=== PATIENT | male | born 1950 | race Caucasian/White ===

== ENCOUNTER 2017-02-24 13:05 | Inpatient (IN) | payer MEDICARE ==
[~2017-02-24] VITALS: Ht 185.4 cm; Wt 77.1 kg
[2017-02-24] VITALS (7 sets, daily range): BP systolic 106–131; BP diastolic 55–75
[2017-02-24] MEDS ORDERED: LOVENOX10 M4 SUBQ (13:06)
[2017-02-24] MEDS ORDERED: CULTURELLE1 EAC1 PO (13:06)
[2017-02-24] MEDS ORDERED: ZANTAC150 MG ORAL (13:06)
[2017-02-24] MEDS ORDERED: METFORMIN HCL500 M5 PO (13:06)
[2017-02-24] MEDS ORDERED: PRO-STAT LIQUID30 ML ORAL (13:06)
[2017-02-24] MEDS ORDERED: LANTUS SOL100 UNIT/1 SUBQ (13:21)
[2017-02-24] MEDS ORDERED: MULTIVITAMINS1 EAC2 ORAL (13:21)
[2017-02-24] MEDS ORDERED: VITAMIN C500 M1 ORAL (13:21)
[2017-02-24] MEDS ORDERED: FUROSEMIDE40 MG ORAL (13:21)
--- NOTE | 2017-02-24 13:40 | Emergency Room Report ---
History of Present Illness General Chief Complaint: General Complaint Source: Patient, EMS Present Illness HPI Patient presents by BLS with complaint of possible fall. The patient has a history of cirrhosis as well as a history of significant peripheral edema for it she suffers from chronic wound ulcers. He is currently staying at a rehabilitation facility and was discharges from [facility]. He states that he slipped off the side of the bed earlier last night. Without a significant impact, did not strike his head. He did state that his Lakhani was manipulated. He required assistance to be brought back to bed today. Was sent here for further evaluation. He has a Lakhani which is been in place for approximately 2-1 /2 months secondary to large inguinal hernia and difficulty passing a Lakhani. Patient complains of suprapubic discomfort and does feel like he likely is suffering from a urinary infection. He denies any specific muscle skeletal complaints or significant chest pain, headache. He does use oxygen for support breathing in general and has a large quantity of abdominal ascites which is chronic for this gentleman. Allergies: Coded Allergies: PENICILLINS (Verified Allergy, Unknown, 02/24/17) Patient History Past Medical History: see triage record, other - cirrhosis Past Surgical History: none Social History: Reports: alcohol use - prior history, Denies: smoking Immunizations: UTD Reviewed Nursing Documentation: PMH: Agreed Nursing Documentation-PMH Hx Cardiac Problems: No - liver cirrohsis, Hx Diabetes: Yes - type 2 Hx Seizures: Yes Review of Systems Constitutional: Reports: malaise, weakness Respiratory: Reports: shortness of breath - requiring oxygen Gastrointestinal: Reports: other - nominal distention, see HPI Genitourinary: Reports: frequency, hematuria, pain All Other Systems: negative except mentioned in HPI Physical Exam Vital Signs Date Time Temp Pulse Resp B/P Pulse Ox O2 Delivery O2 Flow Rate FiO2 02/24/17 12:50 97.9 104 18 118/72 94 Nasal Cannula 3.0 Sp02 EP Interpretation: reviewed, normal General Appearance: well appearing, no apparent distress, GCS 15 Head: atraumatic Eyes: bilateral eye PERRL ENT: normal pharynx, no angioedema Neck: supple, thyroid normal Respiratory: no respiratory distress, decreased breath sounds Cardiovascular #1: tachycardia, edema - bilateral legs Gastrointestinal: soft, no guarding, distended, hepatomegaly, overweight Genitourinary: no CVA tenderness, other - Lakhani in place, significant hernia unable to fully see glans penis. Neurologic: alert, oriented x3, responsive Skin: other - patient has mltiple bruises along arms legs in various stages of healing Medical Decision Making Diagnostic Impression: Primary Impression: UTI (urinary tract infection) Additional Impressions: Cirrhosis Ascites Weakness ER Course Patient here with complaint of urinary symptoms as well as weakness and low kinetic fall yesterday. I do not feel it is any likely significant injury in his abdomen or his extremities based on my exam and the patient's history. He does have a clear-cut urinary tract infection and has had a Lakhani in place for probably 10 weeks. The family the patient would benefit from admission to the hospital and urologic consultation as I do not believe we would be able to exchange a Lakhani in the emergency department. Otherwise labs to appear relatively stable. Notified by Dr. Quigley, pt would be admitted to [facility], for treatment and follow up with urology for lakhani care as inpatient. Laboratory Tests Test 02/24/17 13:40 White Blood Count 8.1 K/UL (4.8-10.8) Red Blood Count 4.37 M/UL (4.70-6.10) L Hemoglobin 10.6 G/DL (14.2-18.0) L Hematocrit 34.5 % (42.0-52.0) L Mean Corpuscular Volume 79 FL (80-99) L Mean Corpuscular Hemoglobin 24.3 PG (27.0-31.0) L Mean Corpuscular Hemoglobin Concent 30.7 G/DL (32.0-36.0) L Red Cell Distribution Width 24.4 % (11.6-14.8) H Platelet Count 96 K/UL (150-450) L Mean Platelet Volume 9.5 FL (6.5-10.1) Neutrophils (%) (Auto) % (45.0-75.0) Lymphocytes (%) (Auto) % (20.0-45.0) Monocytes (%) (Auto) % (1.0-10.0) Eosinophils (%) (Auto) % (0.0-3.0) Basophils (%) (Auto) % (0.0-2.0) Neutrophils % (Manual) Pending Lymphocytes % (Manual) Pending Platelet Estimate Pending Platelet Morphology Pending Prothrombin Time 14.1 SEC (9.30-11.50) H Prothromb Time International Ratio 1.4 (0.9-1.1) H Activated Partial Thromboplast Time 31 SEC (23-33) Urine Color Yellow Urine Appearance Turbid Urine pH 5 (4.5-8.0) Urine Specific [place] 1.020 (1.005-1.035) Urine Protein 2+ (NEGATIVE) H Urine Glucose (UA) Negative (NEGATIVE) Urine Ketones Negative (NEGATIVE) Urine Occult Blood 5+ (NEGATIVE) H Urine Nitrite Negative (NEGATIVE) Urine Bilirubin 2+ (NEGATIVE) H Urine Ictotest Positive Urine Urobilinogen 8 MG/DL (0.0-1.0) H Urine Leukocyte Esterase 3+ (NEGATIVE) H Urine RBC 15-20 /HPF (0 - 0) H Urine WBC Tntc /HPF (0 - 0) H Urine Squamous Epithelial Cells Occasional /LPF Urine Bacteria Many /HPF (NONE) H Sodium Level 139 mEQ/L (135-145) Potassium Level 3.0 mEQ/L (3.4-4.9) L Chloride Level 94 mEQ/L (98-107) L Carbon Dioxide Level 29 mEQ/L (20-30) Anion Gap 16 (5-15) H Blood Urea Nitrogen 22 mg/dL (7-23) Creatinine 1.1 mg/dL (0.7-1.2) Estimat Glomerular Filtration Rate > 60 mL/min (>60) Glucose Level 154 mg/dL (74-106) H Calcium Level 8.4 mg/dL (8.6-10.2) L Total Bilirubin 4.0 mg/dL (0.0-1.2) H Direct Bilirubin 2.0 mg/dL (0.1-0.3) H Aspartate Amino Transf (AST/SGOT) 27 U/L (5-40) Alanine Aminotransferase (ALT/SGPT) 24 U/L (3-41) Alkaline Phosphatase 167 U/L (40-129) H Total Protein 6.5 g/dL (6.6-8.7) L Albumin 2.2 g/dL (3.5-5.2) L Globulin 4.3 g/dL Albumin/Globulin Ratio 0.5 (1.0-2.7) L Lipase 38 U/L (< 60) Rhythm Strip Diag. Results Rhythm Strip Time: 14:10 EP Interpretation: yes Rate: 101 Rhythm: NSR, no PVC's, no ectopy Last Vital Signs Date Time Temp Pulse Resp B/P Pulse Ox O2 Delivery O2 Flow Rate FiO2 02/24/17 13:17 97.9 18 118/72 94 Nasal Cannula 3.0 02/24/17 12:50 104 Disposition: ADMITTED INPATIENT Admit Decision Time: 15:08 Condition: Serious Referrals: DANIELA MARTINEZ (PCP) Troy Patel MD Feb 24, 2017 13:40
[2017-02-24] MEDS ORDERED: cefTRIAXone 1 GM in NS 55 ML IVPB ONE (13:45)
[2017-02-24 14:11] LABS: APPEARANCE,URINE TURBID; KETONES,URINE NEGATIVE (NEGATIVE); LEUKOCYTE ESTERASE ,URINE 3+ (NEGATIVE); NITRITE,URINE NEGATIVE (NEGATIVE); PH,URINE 5 (4.5-8.0); PROTEIN,URINE 2+ (NEGATIVE); UROBILINOGEN,URINE 8 MG/DL (0.0-1.0)
[2017-02-24 14:15] LABS: MEAN CORPUSCULAR HEMOGLOBIN 24.3 PG (27.0-31.0); MEAN CORPUSCULAR HGB CONC 30.7 G/DL (32.0-36.0); MEAN CORPUSCULAR VOLUME 79 FL (80-99); MEAN PLATELET VOLUME 9.5 FL (6.5-10.1); PLATELET COUNT 96 K/UL (150-450); RED BLOOD COUNT 4.37 M/UL (4.70-6.10); RED CELL DISTRIBUTION WIDTH 24.4 % (11.6-14.8); WHITE BLOOD COUNT 8.1 K/UL (4.8-10.8)
[2017-02-24 14:23] LABS: BACTERIA,URINE MANY /HPF; ICTOTEST POSITIVE; RBC,URINE 15-20 /HPF (0 - 0); SQUAMOUS EPITHELIAL CELL,UR OCCASIONAL /LPF (NONE/OCC); WBC,URINE TNTC /HPF (0 - 0)
[2017-02-24 14:29] LABS: ALANINE AMINOTRANSFERASE 24 U/L (3-41); ALBUMIN/GLOBULIN RATIO 0.5 (1.0-2.7); ANION GAP 16 (5-15); ASPARTATE AMINO TRANSFERASE 27 U/L (5-40); CALCIUM 8.4 mg/dL (8.6-10.2); CARBON DIOXIDE 29 mEQ/L (20-30); CHLORIDE 94 mEQ/L (98-107); CREATININE 1.1 mg/dL (0.7-1.2); GLOMERULAR FILTRATION RATE > 60 mL/min (>60); HEMOLYSIS 10; INR 1.4 (0.9-1.1); LIPASE 38 U/L (< 60); PROTHROMBIN TIME 14.1 SEC (9.30-11.50); SODIUM 139 mEQ/L (135-145); TOTAL PROTEIN 6.5 g/dL (6.6-8.7)
[2017-02-24 15:20] LABS: BAND NEUTROPHILS % (MANUAL) 0 % (0-8); BASOPHILS % (MANUAL) 1 % (0-2); EOSINOPHILS % (MANUAL) 1 % (0-3); HYPOCHROMASIA 2+; LYMPHOCYTES % (MANUAL) 20 % (20-45); NEUTROPHILS % (MANUAL) 70 % (45-75); PLATELET ESTIMATE DECREASED; PLATELET MORPHOLOGY NORMAL; TOTAL CELLS COUNTED 100
[2017-02-24 15:21] LABS: ANISOCYTOSIS 2+
[2017-02-24] MEDS ORDERED: Ascorbic Acid 500mg tab ORAL SCH (19:45)
--- NOTE | 2017-02-24 20:36 | History and Physical ---
Dayanara Li N.P. 02/24/172035: History of Present Illness General Date patient seen: Feb 24, 2017 Reason for Hospitalization: General Complaint Present Illness HPI 66 y/o male with a PMH of chronic cirrhosis due to alcoholism, BLE edema, DM, and BPH with chronic lakhani who presented from SNF for generalized weakness, AMS , and fall. Patient stated that he has been feeling weak for the last several days and yesterday slid onto the floor from his bed due to weakness. He denies any trauma, pain, LOC or head injury. He was noted to have a UTI in the ED and was given a dose of ceftriaxone. He states that he was told he had a penicillin allergy as a child but does not know his reaction. However, he has had cephalosporin abx in the past and has been able to tolerate it well. He denies dysuria, hematuria, suprapubic pain. He reports that he has had this lakhani for the last 2 months and has not had it changed due to difficulty inserting it from his inguinal hernia. He also states that he was recently at [facility] and had a full workup for his alcoholic cirrhosis for which they prescribed him lasix. He also reports more SOB than usual. Denies cough, chest pain, n/v, f/c, d/c, abdominal pain, dizziness, headaches. Allergies: Coded Allergies: PENICILLINS (Verified Allergy, Unknown, 02/24/17) Medication History Scheduled Amino Acids/Protein Hydrolys (Pro-Stat Liquid), 30 ML ORAL TWICE A DAY, ( Reported) Ascorbic Acid* (Vitamin C*), 500 MG ORAL DAILY, (Reported) Enoxaparin* (Lovenox*), 40 MG SUBQ DAILY, (Reported) Furosemide* (Lasix*), 40 MG ORAL DAILY, (Reported) Insulin Glargine (Lantus), 0 SUBQ BEDTIME, (Reported) Multivitamins* (Multivitamins*), 1 TAB ORAL DAILY, (Reported) Omeprazole (Omeprazole), 20 MG ORAL BID, (Reported) Ranitidine Hcl* (Zantac*), 150 MG ORAL DAILY, (Reported) Tamsulosin HCl (Flomax), 0.4 MG ORAL DAILY, (Reported) Scheduled PRN Hydrocodone Bit/Acetaminophen 10-325* (Collins 10-325*), 1 TAB ORAL Q4H PRN for For Pain, (Reported) Miscellaneous Medications Lactobacillus Rhamnosus Gg (Culturelle), 1 EACH PO, (Reported) Mag Hydrox/Al Hydrox/Simeth (Maalox Maximum Strength Susp), 30 ML PO, (Reported) Metformin HCl (Metformin HCl ER), 500 MG PO, (Reported) Tolterodine Tartrate (Tolterodine Tartrate ER), 4 MG PO, (Reported) Patient History Healthcare decision maker Resuscitation status Advanced Directive on File Review of Systems Constitutional: Reports: weakness Eye: Denies: acuity changes, blurred vision, discharge, double vision, eye pain , no symptoms, nose congestion, nose pain, other, see HPI, tearing ENT: Denies: ear discharge, ear pain, hearing loss, mouth pain, nasal discharge , no symptoms, nose congestion, nose pain, other, see HPI, throat pain, throat swelling Respiratory: Reports: orthopnea, other - denies cough, wheezing, shortness of breath Cardiovascular: Reports: edema, Denies: PND, chest pain, no symptoms, other, palpitations, see HPI, syncope Gastrointestinal: Denies: abdominal pain, constipation, diarrhea, hematemesis, melena, nausea, no symptoms, other, see HPI, vomiting Genitourinary: Reports: incontinence, retention, Denies: discharge, dysuria, frequency, hematuria, no symptoms, other, pain, see HPI, urgency, vag bleed/dc Musculoskeletal: Denies: back pain, gout, joint pain, joint swelling, muscle pain, muscle stiffness, no symptoms, other, see HPI Skin: Reports: other, Denies: change in color, change in hair/nails, dryness, lesions, no symptoms, rash, see HPI Psychiatric: Denies: HI, SI, anxiety, depressed feelings, emotional problems, hallucinations, no symptoms, other, prior hx, see HPI Neurological: Denies: dizziness, focal weakness, headache, no symptoms, numbness, other, paresthesia, see HPI, seizure, syncope, tingling, tremors Endocrine: Denies: excessive sweating, flushing, increased thirst, increased urine, intolerance to temperature, no symptoms, other, see HPI, unexplained weight loss Hematologic/Lymphatic: Denies: anemia, blood clots, diathesis, easy bleeding, easy bruising, no symptoms, other, see HPI, swollen glands Physical Exam General Appearance: alert, mild distress HEENT: normocephalic, atraumatic, PERRL Neck: non-tender, supple Respiratory/Chest: lungs clear, normal breath sounds, no accessory muscle use Cardiovascular/Chest: normal rate, regular rhythm, no JVD Abdomen: normal bowel sounds, non tender, distended Extremities: moderate edema, pitting Skin Exam: normal pigmentation, warm/dry Neurologic: paste mixer II-XII grossly normal, alert, oriented x 3, responsive Last 24 Hour Vital Signs Date Time Temp Pulse Resp B/P Pulse Ox O2 Delivery O2 Flow Rate FiO2 02/24/17 18:56 108 18 131/60 96 Nasal Cannula 3.0 02/24/17 17:10 111 18 111/55 96 Nasal Cannula 3.0 02/24/17 15:04 100 18 106/64 100 Nasal Cannula 3.0 02/24/17 13:17 97.9 18 118/72 94 Nasal Cannula 3.0 02/24/17 12:50 97.9 104 18 118/72 94 Nasal Cannula 3.0 Laboratory Tests Test 02/24/17 13:40 White Blood Count 8.1 K/UL (4.8-10.8) Red Blood Count 4.37 M/UL (4.70-6.10) L Hemoglobin 10.6 G/DL (14.2-18.0) L Hematocrit 34.5 % (42.0-52.0) L Mean Corpuscular Volume 79 FL (80-99) L Mean Corpuscular Hemoglobin 24.3 PG (27.0-31.0) L Mean Corpuscular Hemoglobin Concent 30.7 G/DL (32.0-36.0) L Red Cell Distribution Width 24.4 % (11.6-14.8) H Platelet Count 96 K/UL (150-450) L Mean Platelet Volume 9.5 FL (6.5-10.1) Neutrophils (%) (Auto) % (45.0-75.0) Lymphocytes (%) (Auto) % (20.0-45.0) Monocytes (%) (Auto) % (1.0-10.0) Eosinophils (%) (Auto) % (0.0-3.0) Basophils (%) (Auto) % (0.0-2.0) Differential Total Cells Counted 100 Neutrophils % (Manual) 70 % (45-75) Lymphocytes % (Manual) 20 % (20-45) Monocytes % (Manual) 8 % (1-10) Eosinophils % (Manual) 1 % (0-3) Basophils % (Manual) 1 % (0-2) Band Neutrophils 0 % (0-8) Platelet Estimate Decreased L Platelet Morphology Normal Hypochromasia 2+ Anisocytosis 2+ Prothrombin Time 14.1 SEC (9.30-11.50) H Prothromb Time International Ratio 1.4 (0.9-1.1) H Activated Partial Thromboplast Time 31 SEC (23-33) Urine Color Yellow Urine Appearance Turbid Urine pH 5 (4.5-8.0) Urine Specific [place] 1.020 (1.005-1.035) Urine Protein 2+ (NEGATIVE) H Urine Glucose (UA) Negative (NEGATIVE) Urine Ketones Negative (NEGATIVE) Urine Occult Blood 5+ (NEGATIVE) H Urine Nitrite Negative (NEGATIVE) Urine Bilirubin 2+ (NEGATIVE) H Urine Ictotest Positive Urine Urobilinogen 8 MG/DL (0.0-1.0) H Urine Leukocyte Esterase 3+ (NEGATIVE) H Urine RBC 15-20 /HPF (0 - 0) H Urine WBC Tntc /HPF (0 - 0) H Urine Squamous Epithelial Cells Occasional /LPF Urine Bacteria Many /HPF (NONE) H Sodium Level 139 mEQ/L (135-145) Potassium Level 3.0 mEQ/L (3.4-4.9) L Chloride Level 94 mEQ/L (98-107) L Carbon Dioxide Level 29 mEQ/L (20-30) Anion Gap 16 (5-15) H Blood Urea Nitrogen 22 mg/dL (7-23) Creatinine 1.1 mg/dL (0.7-1.2) Estimat Glomerular Filtration Rate > 60 mL/min (>60) Glucose Level 154 mg/dL (74-106) H Calcium Level 8.4 mg/dL (8.6-10.2) L Total Bilirubin 4.0 mg/dL (0.0-1.2) H Direct Bilirubin 2.0 mg/dL (0.1-0.3) H Aspartate Amino Transf (AST/SGOT) 27 U/L (5-40) Alanine Aminotransferase (ALT/SGPT) 24 U/L (3-41) Alkaline Phosphatase 167 U/L (40-129) H Total Protein 6.5 g/dL (6.6-8.7) L Albumin 2.2 g/dL (3.5-5.2) L Globulin 4.3 g/dL Albumin/Globulin Ratio 0.5 (1.0-2.7) L Lipase 38 U/L (< 60) Height (Feet): 6 Height (Inches): 1.00 Weight (Pounds): 170 Medications Current Medications Medications (Trade) Dose Ordered Sig/Chloe Route PRN Reason Start Time Stop Time Status Last Admin Dose Admin Ascorbic Acid (Vitamin C) 500 mg DAILY ORAL 02/24/17 19:45 03/26/17 19:44 Ceftriaxone Sodium/Sodium Chloride (Rocephin/Sodium Chloride) 55 ml @ 110 mls/hr DAILY IVPB 02/25/17 09:00 03/04/17 08:59 Dextrose STAT PRN IV Hypoglycemia 02/24/17 19:45 03/26/17 19:44 Enoxaparin Sodium (Lovenox) 40 mg DAILY SUBQ 02/25/17 09:00 03/27/17 08:59 Furosemide (Lasix) 40 mg DAILY ORAL 02/25/17 09:00 03/27/17 08:59 Insulin Aspart (NovoLOG) BEFORE MEALS AND HS SUBQ 02/24/17 21:00 03/26/17 20:59 Multivitamins (Multivitamins) 1 tab DAILY ORAL 02/25/17 09:00 03/27/17 08:59 Ranitidine HCl (Zantac) 150 mg DAILY ORAL 02/25/17 09:00 03/27/17 08:59 Assessment/Plan Problem List: (1) UTI (urinary tract infection) Assessment & Plan: w/ chronic lakhani Admit to inpatient, med-surg IV CTX IVF with gentle hydration f/u urine cx f/u blood cx urology consult. urology to change lakhani due to difficult lakhani insertion from large inguinal hernia ICD Codes: N39.0 - Urinary tract infection, site not specified SNOMED: 60173662 (2) SOB (shortness of breath) Assessment & Plan: likely 2/2 ascites check CXR rule out ACS, check serial trops, EKG O2 prn ICD Codes: R06.02 - Shortness of breath SNOMED: 428846330 (3) Weakness Assessment & Plan: exacerbated in setting of infection check labs for further metabolic workup ICD Codes: R53.1 - Weakness SNOMED: 24004452 (4) wound Assessment & Plan: wound consult wound care per italian teacher (5) Cirrhosis Assessment & Plan: chronic alcoholic cirrhosis continue lasix 40mg daily check ammonia ICD Codes: K74.60 - Unspecified cirrhosis of liver SNOMED: 55171691 Qualifiers: (6) Diabetes Assessment & Plan: continue SSi check A1c ICD Codes: E11.9 - Type 2 diabetes mellitus without complications SNOMED: 72274422 (7) Bilateral lower extremity edema Assessment & Plan: recent, OSH bilateral venous duplex negative for DVT continue lasix 40mg daily ICD Codes: R60.0 - Localized edema SNOMED: 562207551 (8) Status post fall Assessment & Plan: per my examination, patient does not show any signs of trauma and does not c/o pain. Will defer CT head and further xrays at this time ICD Codes: Z91.81 - History of falling SNOMED: 075813636 DANIELA MARTINEZ 02/26/17 1137: History of Present Illness General Reason for Hospitalization: General Complaint Present Illness Allergies: Coded Allergies: PENICILLINS (Verified Allergy, Unknown, 02/24/17) Medication History Scheduled Amino Acids/Protein Hydrolys (Pro-Stat Liquid), 30 ML ORAL TWICE A DAY, ( Reported) Ascorbic Acid* (Vitamin C*), 500 MG ORAL DAILY, (Reported) Enoxaparin* (Lovenox*), 40 MG SUBQ DAILY, (Reported) Furosemide* (Lasix*), 40 MG ORAL DAILY, (Reported) Insulin Glargine (Lantus), 0 SUBQ BEDTIME, (Reported) Multivitamins* (Multivitamins*), 1 TAB ORAL DAILY, (Reported) Omeprazole (Omeprazole), 20 MG ORAL BID, (Reported) Ranitidine Hcl* (Zantac*), 150 MG ORAL DAILY, (Reported) Tamsulosin HCl (Flomax), 0.4 MG ORAL DAILY, (Reported) Scheduled PRN Hydrocodone Bit/Acetaminophen 10-325* (Collins 10-325*), 1 TAB ORAL Q4H PRN for For Pain, (Reported) Miscellaneous Medications Lactobacillus Rhamnosus Gg (Culturelle), 1 EACH PO, (Reported) Mag Hydrox/Al Hydrox/Simeth (Maalox Maximum Strength Susp), 30 ML PO, (Reported) Metformin HCl (Metformin HCl ER), 500 MG PO, (Reported) Tolterodine Tartrate (Tolterodine Tartrate ER), 4 MG PO, (Reported) Assessment/Plan Assessment/Plan The patient was seen and examined at bedside and all new and available data was reviewed in the patients chart. I agree with the above findings, impression, and plan. F/U Labs F/U cultures -PT mobility F/U with sr technical sales consultant Recommendation (Patient was seen earlier today. Signature timestamp does not reflect patient encounter time) Dayanara Yoo MD N.P. Feb 24, 2017 20:36 DANIELA MARTINEZ Feb 26, 2017 11:37
[2017-02-24] MEDS: NovoLOG Insulin Flexpen SUBQ SCH (21:58)
[2017-02-24 23:25] LABS: MEAN CORPUSCULAR HEMOGLOBIN 24.6 PG (27.0-31.0); MEAN CORPUSCULAR HGB CONC 31.5 G/DL (32.0-36.0); MEAN CORPUSCULAR VOLUME 78 FL (80-99); MEAN PLATELET VOLUME 9.7 FL (6.5-10.1); PLATELET COUNT 91 K/UL (150-450); RED CELL DISTRIBUTION WIDTH 24.3 % (11.6-14.8); WHITE BLOOD COUNT 6.8 K/UL (4.8-10.8)
[2017-02-24 23:33] LABS: ALANINE AMINOTRANSFERASE 21 U/L (3-41); ALBUMIN/GLOBULIN RATIO 0.5 (1.0-2.7); ANION GAP 13 (5-15); ASPARTATE AMINO TRANSFERASE 20 U/L (5-40); CARBON DIOXIDE 31 mEQ/L (20-30); CHLORIDE 94 mEQ/L (98-107); CREATININE 1.1 mg/dL (0.7-1.2); GLOMERULAR FILTRATION RATE > 60 mL/min (>60); HEMOLYSIS 4; SODIUM 138 mEQ/L (135-145); TOTAL PROTEIN 6.3 g/dL (6.6-8.7); TROPONIN I < 0.30 ng/mL (<=0.30)
[2017-02-24 23:35] LABS: AMMONIA 55 umol/L (16-60)
[2017-02-24 23:37] LABS: POTASSIUM 2.7 mEQ/L (3.4-4.9)
[2017-02-24] MEDS ORDERED: MAALOX MAXIMUM355 M1 PO (23:44)
[2017-02-24] MEDS ORDERED: TOLTERODINE TART4 MG PO (23:44)
[2017-02-24] MEDS ORDERED: NORCO 10-325 T1 EACH ORAL (23:44)
[2017-02-24] MEDS ORDERED: FLOMAX0.4 MG ORAL (23:44)
[2017-02-24] MEDS ORDERED: OMEPRAZOLE20 M3 ORAL (23:44)
[2017-02-24 23:54] LABS: BILIRUBIN,DIRECT 1.9 mg/dL (0.1-0.3)
[2017-02-25] MEDS ORDERED: Norco 10mg/325mg tab ORAL PRN
[2017-02-25] MEDS ORDERED: Mylanta II UD 30ml ORAL PRN (00:30)
[2017-02-25 04:43] VITALS: BP 126/75
[2017-02-25] MEDS: NovoLOG Insulin Flexpen SUBQ SCH ×4 (06:42→20:58)
[2017-02-25 07:47] LABS: ANION GAP 14 (5-15); CALCIUM 8.3 mg/dL (8.6-10.2); CARBON DIOXIDE 33 mEQ/L (20-30); CHLORIDE 96 mEQ/L (98-107); CREATININE 1.1 mg/dL (0.7-1.2); GLOMERULAR FILTRATION RATE > 60 mL/min (>60); HEMOLYSIS 2; POTASSIUM 2.8 mEQ/L (3.4-4.9); SODIUM 143 mEQ/L (135-145)
[2017-02-25 08:15] VITALS: BP 98/61
[2017-02-25] MEDS ORDERED: Furosemide 40mg tab ORAL SCH (09:00)
[2017-02-25] MEDS ORDERED: Enoxaparin 40mg Inj SUBQ SCH (09:00)
[2017-02-25] MEDS ORDERED: cefTRIAXone 1 GM in NS 55 ML IVPB SCH (09:00)
--- NOTE | 2017-02-25 09:32 | Consultation ---
DATE OF CONSULTATION: 02/25/2017 CONSULTING PHYSICIAN: Dhaval Calderon M.D. REFERRING PHYSICIAN: Dayana Loaiza M.D. REASON FOR CONSULTATION: For evaluation of difficult Womack change. 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 He has a history of alcoholism, chronic cirrhosis, bilateral lower edema, diabetes, and BPH. He had a chronic Womack. He was admitted from the half-way because of generalized weakness and altered mental status. He has been feeling weak. He has a chronic Womack catheter. Apparently, difficult insertion because of phimosis as well as inguinal hernia. The patient requested to have an urologist change his Womack catheter. Denies previous prostate surgery. PAST MEDICAL HISTORY: Significant for above. Again, diabetes, BPH, and liver cirrhosis. PAST SURGICAL HISTORY: Unknown. MEDICATIONS: Current medications in the hospital, the patient is on Lovenox, Lasix, multivitamin, Zantac, Rocephin, Protonix, Mylanta, and ascorbic acid. ALLERGIES: Penicillin. SOCIAL HISTORY: He lives in a half-way. FAMILY HISTORY: Noncontributory. PHYSICAL EXAMINATION: GENERAL: A well-developed, well-nourished male, in no acute distress. VITAL SIGNS: Temperature is 97.2, blood pressure 126/75, pulse 100, and respirations 20. HEENT: Normocephalic. NECK: Supple. ABDOMEN: Soft. GENITOURINARY: Exam reveals phimosis. A 16-Malawian Womack replaced. Urine is yellowish with debris. There is what appears to be inguinal hernia, some scrotal edema. EXTREMITIES: Lower extremities are in bandages. LABORATORY DATA: His UA showed 15 to 20 RBCs, too numerous to count WBCs, many bacteria, 2+ protein. White count is 6.8, hemoglobin 10.6, and platelets are 91,000. BUN is 23, creatinine 1.1, and potassium last time was 2.7. DIAGNOSTIC IMAGING STUDIES: None. IMPRESSION: 1. Urinary retention with chronic Womack. 2. Benign prostatic hypertrophy history. 3. Probable neurogenic bladder. 4. Pyuria and probable colonization versus urinary tract infection. 5. Hematuria. 6. Proteinuria. 7. Phimosis. 8. Inguinal hernia. PLAN AND DISCUSSION: Again, the patient does have a chronic Womack catheter. He does have a positive UA consistent with colonization and possible UTI. I was able to remove the old catheter and I personally placed a new 16-Malawian Womack, it was in good position, irrigated well. The catheter is to remain indwelling. We will continue to follow up on the urine culture and treat with antibiotics as ordered. He is currently on Rocephin. I will also add finasteride 5 mg daily. I will follow the patient and any other recommendations will be forthcoming. Thank you, Dr. Loaiza, for asking me to participate in this consultation. Kimberlee Yeung JOB#: [id number] CC:
[2017-02-25] MEDS: Tolterodine 2mg tab ORAL SCH ×2 (10:50→18:12)
[2017-02-25] MEDS: Ascorbic Acid 500mg tab ORAL SCH (10:51)
[2017-02-25] MEDS: Furosemide 40mg tab ORAL SCH (10:52)
[2017-02-25] MEDS: Enoxaparin 40mg Inj SUBQ SCH (10:53)
[2017-02-25 11:58] VITALS: BP 127/75
--- NOTE | 2017-02-25 13:24 | Wound Care Consultation ---
Wound Assessment Wound Assessment #1: Wound Number: #1 Wound Present on Admission: Yes New Wound: No Status Change of Wound: No Wound Location Body Site Modif: right Wound Location Body Site: ear - superior ear fold Wound Type: pressure ulcer Kaleb Test: Does not Kaleb Pressure Ulcer Stage: IV/unstageable Wound Thickness: Full Thickness Wound Length: 1.0 Wound Width: 1.0 Wound Depth: utd Percent of Wound Bed Yellow/Wh: 100 Wound Drainage Description: Serosanguineous Wound Drainage Amount: Moderate Wound Drainage Odor: None/Absent Tissue Surrounding Wound: Erythemic Wound General Appearance: Reddened, Necrotic Wound Assessment #2: Wound Number: #2 Wound Present on Admission: Yes New Wound: No Status Change of Wound: No Wound Location Body Site Modif: mid Wound Location Body Site: sacral Wound Type: pressure ulcer Kaleb Test: Does not Kaleb Pressure Ulcer Stage: IV/unstageable Wound Thickness: Full Thickness Wound Length: 1.5 Wound Width: 2.0 Wound Depth: utd Percent of Wound Bed Yellow/Wh: 100 Wound Drainage Description: Serosanguineous Wound Drainage Amount: Moderate Wound Drainage Odor: None/Absent Tissue Surrounding Wound: Macerated Wound General Appearance: Necrotic Wound Assessment #3: Wound Number: #3 Wound Present on Admission: Yes New Wound: No Status Change of Wound: No Wound Location Body Site Modif: mid, upper Wound Location Body Site: thoracic spine Wound Type: pressure ulcer Kaleb Test: Does not Kaleb Pressure Ulcer Stage: deep tissue injury Wound Thickness: Full Thickness Wound Length: 11.0 - scattered Wound Width: 3.0 - scattered Wound Depth: utd Percent of Wound Purple/Maroon: 100 Wound Drainage Amount: None Wound Drainage Odor: None/Absent Tissue Surrounding Wound: Erythemic Wound General Appearance: Reddened Wound Assessment #4: Wound Number: #4 Wound Present on Admission: Yes New Wound: No Status Change of Wound: No Wound Location Body Site Modif: mid Wound Location Body Site: thoracic spine Wound Type: pressure ulcer Kaleb Test: Does not Kaleb Pressure Ulcer Stage: deep tissue injury Wound Thickness: Full Thickness Wound Length: 3.0 Wound Width: 3.0 Wound Depth: utd Percent of Wound Purple/Maroon: 100 Wound Drainage Amount: None Wound Drainage Odor: None/Absent Tissue Surrounding Wound: Intact Wound General Appearance: Reddened Wound Comment #1 Mid Sacral IV/Unstageable pressure ulcer. #2 Right superior ear fold stage IV/Unstageable. #3 Mid upper back thoracic spine suspected deep tissue injury. #4 Mid back thoracic back deep tissue injury. Recommendation. -Local wound care as ordered. -Optimize nutrition. -Keep clean and dry. -Heel protectors. -Turn and reposition. -Offload heels and feet. -Avoid shear and friction. -Apply low air loss SPR mattress. -Assess and follow up with MD for any changes of condition to skin. GIORGI FRANCOIS Feb 25, 2017 13:24
--- NOTE | 2017-02-25 13:43 | Wound Nurse Progress Note ---
Wound RN Progress Note Wound Consult Patient refused to have bilateral lower extremities assessed x3 , noted with bilateral coband wrap , stated" no dont take it off, its done every two days". GIORGI FRANCOIS Feb 25, 2017 13:43
--- NOTE | 2017-02-25 14:40 | Cardiology Report ---
APPROVED REPORT EKG Measurement Heart [id number] Poor data quality, interpretation may be adversely affected Sinus rhythm with occasional premature ventricular complexes Left axis deviation Low voltage QRS Nonspecific ST and T wave abnormality Prolonged QT Abnormal ECG
[2017-02-25] MEDS: cefTRIAXone 1 GM in NS 55 ML IVPB SCH (14:44)
--- NOTE | 2017-02-25 15:48 | Diagnostic Imaging Report ---
Indication: Shortness of breath Technique: One view of the chest Comparison: none Findings: There is a large right pleural effusion. There is a small left pleural effusion. Is bilateral interstitial and airspace edema. The heart is borderline enlarged. Impression: Findings compatible with congestive heart failure with bilateral right greater left pleural effusions
[2017-02-25 16:00] VITALS: BP 125/70
[2017-02-25 20:00] VITALS: BP 117/75
--- NOTE | 2017-02-25 20:06 | General Progress Note ---
Assessment/Plan Problem List: (1) UTI (urinary tract infection) Assessment & Plan: w/ chronic lakhani 2/2 urinary retention IV CTX f/u urine cx f/u blood cx urology consult appreciated lakhani changed finasteride added ICD Codes: N39.0 - Urinary tract infection, site not specified SNOMED: 91109727 (2) Weakness Assessment & Plan: exacerbated in setting of infection check labs for further metabolic workup ICD Codes: R53.1 - Weakness SNOMED: 75725254 (3) wound Assessment & Plan: wound consult wound care per sales support engineer (4) Cirrhosis Assessment & Plan: chronic alcoholic cirrhosis continue lasix 40mg daily check ammonia ICD Codes: K74.60 - Unspecified cirrhosis of liver SNOMED: 76058131 Qualifiers: (5) Diabetes Assessment & Plan: continue SSi check A1c ICD Codes: E11.9 - Type 2 diabetes mellitus without complications SNOMED: 26197847 (6) Bilateral lower extremity edema Assessment & Plan: recent, OSH bilateral venous duplex negative for DVT continue lasix 40mg daily ICD Codes: R60.0 - Localized edema SNOMED: 523692042 (7) Status post fall Assessment & Plan: per my examination, patient does not show any signs of trauma and does not c/o pain. Will defer CT head and further xrays at this time ICD Codes: Z91.81 - History of falling SNOMED: 508176478 (8) Urinary retention Assessment & Plan: chronic lakhani urology consulted ICD Codes: R33.9 - Retention of urine, unspecified SNOMED: 756280232 (9) Pleural effusion Assessment & Plan: bilateral pleural effusion with right greater than left on CXR likely 2/2 CHF exacerbation on chronic O2, saturating >92% on 3-4L O2 RI pulmonology consulted alex prn ICD Codes: J90 - Pleural effusion, not elsewhere classified SNOMED: 99260812 (10) acute on chronic chf exacerbation Assessment & Plan: continue diuresis with lasix cardiology consulted BNP 7000s check serial trops and EKG Status: stable Subjective Date patient seen: Feb 25, 2017 Time patient seen: 18:00 Constitutional: Reports: weakness HEENT: Denies: blurred vision, double vision, ear discharge, ear pain, eye pain , mouth pain, mouth swelling, no symptoms, nose congestion, nose pain, other, tearing, throat pain, throat swelling Cardiovascular: Reports: edema, no symptoms, Denies: chest pain, irregular heart rate, lightheadedness, other, palpitations, syncope Respiratory: Reports: SOB at rest, cough, no symptoms, orthopnea, shortness of breath, Denies: SOB with excertion, other, sputum, stridor, wheezing Gastrointestinal/Abdominal: Reports: abdomen distended, Denies: abdominal pain , black stools, blood in stool, constipated, diarrhea, difficulty swallowing, nausea, no symptoms, other, poor appetite, poor fluid intake, rectal bleeding, tarry stools, vomiting Genitourinary: Reports: hematuria, Denies: burning, discharge, flank pain, frequency, incontinence, no symptoms, other, pain, urgency Neurologic/Psychiatric: Denies: anxiety, depressed, emotional problems, headache, no symptoms, numbness, other, paresthesia, pre-existing deficit, seizure, tingling, tremors, weakness Allergies: Coded Allergies: PENICILLINS (Verified Allergy, Unknown, 02/24/17) Subjective no acute o/n events seen by urology, lakhani changed successfully. hematuria noted in lakhani bag likely 2/2 possible trauma to lakhani insertion. finasteride added per urology on IV CTX CXR shows bilateral pleural effusion with right greater than left, with cardiomegaly patient reports more SOB than usual. States that he is chronically on 3L at home but is requiring 4L in the hospital denies cp, n/v, cough, headaches Objective Last 24 Hour Vital Signs Date Time Temp Pulse Resp B/P Pulse Ox O2 Delivery O2 Flow Rate FiO2 02/25/17 16:00 98.2 96 18 125/70 97 Nasal Cannula 2.0 02/25/17 11:58 98.4 97 21 127/75 99 Nasal Cannula 2.0 02/25/17 08:15 97.1 94 21 98/61 95 Nasal Cannula 2.0 02/25/17 08:01 95 Nasal Cannula 3.0 32 02/25/17 08:00 Nasal Cannula 3.0 32 02/25/17 04:43 97.3 100 20 126/75 93 Room Air 02/24/17 23:46 98.0 99 18 112/72 93 Nasal Cannula 02/24/17 21:28 97.0 105 18 118/75 94 Nasal Cannula 02/24/17 20:46 98.1 106 22 129/71 96 Nasal Cannula 3.0 02/24/17 20:46 97.9 106 18 129/71 96 Nasal Cannula 3.0 Intake and Output 02/24/17 02/25/17 19:00 07:00 Intake Total 50 ml 450 ml Output Total 300 ml 1000 ml Balance -250 ml -550 ml Intake Oral 0 ml IV Total 50 ml 450 ml Output Urine Total 300 ml 1000 ml # Bowel Movements 2 Laboratory Tests 02/24/17 23:00: White Blood Count 6.8, Red Blood Count 4.30L, Hemoglobin 10.6L, Hematocrit 33.6L , Mean Corpuscular Volume 78L, Mean Corpuscular Hemoglobin 24.6L, Mean Corpuscular Hemoglobin Concent 31.5L, Red Cell Distribution Width 24.3H, Platelet Count 91L, Mean Platelet Volume 9.7, Neutrophils (%) (Auto) , Lymphocytes (%) (Auto) , Monocytes (%) (Auto) , Eosinophils (%) (Auto) , Basophils (%) (Auto) , Sodium Level 138, Potassium Level 2.7*L, Chloride Level 94L, Carbon Dioxide Level 31H, Anion Gap 13, Blood Urea Nitrogen 23, Creatinine 1.1, Estimat Glomerular Filtration Rate > 60, Glucose Level 156H, Hemoglobin A1c 4.8, Calcium Level 8.0L, Total Bilirubin 3.3H, Direct Bilirubin 1.9H, Aspartate Amino Transf (AST/SGOT) 20, Alanine Aminotransferase (ALT/SGPT) 21, Alkaline Phosphatase 147H, Ammonia 55, Troponin I < 0.30, Pro-B-Type Natriuretic Peptide 7195H, Total Protein 6.3L, Albumin 2.1L, Globulin 4.2, Albumin/Globulin Ratio 0.5L 02/25/17 05:50: Sodium Level 143, Potassium Level 2.8L, Chloride Level 96L, Carbon Dioxide Level 33H, Anion Gap 14, Blood Urea Nitrogen 23, Creatinine 1.1, Estimat Glomerular Filtration Rate > 60, Glucose Level 120H, Calcium Level 8.3L Height (Feet): 6 Height (Inches): 1.00 Weight (Pounds): 170 General Appearance: alert, mild distress EENT: PERRL/EOMI Neck: non-tender, supple Cardiovascular: normal rate, regular rhythm Respiratory/Chest: lungs clear Abdomen: normal bowel sounds, non tender, soft, distended, other - ascites Genitourinary/Rectal: other - on lakhani with hematuria Edema: 1+ Leg (L), 1+ Leg (R) 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 Feb 25, 2017 20:06
[2017-02-25] MEDS ORDERED: KCl 10% 40mEq/30ml liquid ORAL ONE (20:45)
[2017-02-26] VITALS: BP 118/73
[2017-02-26 04:00] VITALS: BP_SYST 125; BP_SYST 160; BP_DIAS 69; BP_DIAS 73
[2017-02-26] MEDS: NovoLOG Insulin Flexpen SUBQ SCH ×4 (06:35→21:54)
[2017-02-26 08:00] VITALS: BP 121/76
[2017-02-26] MEDS: Enoxaparin 40mg Inj SUBQ SCH (09:00)
[2017-02-26] MEDS: Furosemide 40mg tab ORAL SCH (09:00)
[2017-02-26] MEDS: Ascorbic Acid 500mg tab ORAL SCH (09:09)
[2017-02-26] MEDS: Tolterodine 2mg tab ORAL SCH ×2 (09:09→18:42)
--- NOTE | 2017-02-26 11:29 | Urology Progress Note ---
Assessment/Plan Assessment/Plan 1. Urinary retention with chronic Lakhani. 2. Benign prostatic hypertrophy history. 3. Probable neurogenic bladder. 4. Pyuria and probable colonization versus urinary tract infection. 5. Hematuria. 6. Proteinuria. 7. Phimosis. 8. Inguinal hernia. keep lakhani indwelling, last exchanged 02/25 abx as ordered f/u on cx's Subjective Allergies: Coded Allergies: PENICILLINS (Verified Allergy, Unknown, 02/24/17) Subjective all noted Objective Last 24 Hour Vital Signs Date Time Temp Pulse Resp B/P Pulse Ox O2 Delivery O2 Flow Rate FiO2 02/26/17 08:00 98.0 92 18 121/76 96 Nasal Cannula 2.0 02/26/17 04:00 96.6 95 18 125/73 91 Nasal Cannula 02/26/17 00:00 97.3 100 20 118/73 92 Nasal Cannula 3.0 02/25/17 20:12 Nasal Cannula 3.0 32 02/25/17 20:12 96 Nasal Cannula 3.0 32 02/25/17 20:00 96.6 104 20 117/75 92 Room Air 02/25/17 16:00 98.2 96 18 125/70 97 Nasal Cannula 2.0 02/25/17 11:58 98.4 97 21 127/75 99 Nasal Cannula 2.0 Intake and Output 02/25/17 02/26/17 19:00 07:00 Intake Total 1550 ml Output Total 800 ml 400 ml Balance 750 ml -400 ml Intake Oral 1080 ml IV Total 470 ml Output Urine Total 800 ml 400 ml # Bowel Movements 1 Microbiology Date/Time Source Procedure Growth Status 02/24/17 23:05 Blood Blood Culture - Preliminary NO GROWTH AFTER 24 HOURS Resulted 02/24/17 15:10 Nasal Nares MRSA Culture - Final NO METHICILLIN RESISTANT STAPH AUREUS... Complete 02/24/17 13:40 Urine,Clean Catch Urine Culture - Preliminary Gram Negative Bacillus 1 Resulted 02/24/17 15:10 Rectum VRE Culture - Final Enterococcus Faecalis - Vre Complete Current Medications Medications (Trade) Dose Ordered Sig/Chloe Route PRN Reason Start Time Stop Time Status Last Admin Dose Admin Acetaminophen/ Hydrocodone Bitart ([place] 10/325) 1 ea Q4H PRN ORAL For Pain 02/25/17 00:00 03/04/17 00:00 Al Hydroxide/Mg Hydroxide (Mylanta II) 30 ml Q6H PRN ORAL dyspepsia 02/25/17 00:30 03/27/17 00:29 Ascorbic Acid 500 mg 500 mg DAILY ORAL 02/25/17 11:00 03/27/17 10:59 02/26/17 09:09 Ceftriaxone Sodium/Sodium Chloride (Rocephin/Sodium Chloride) 55 ml @ 110 mls/hr Q24H IVPB 02/25/17 14:00 03/04/17 13:59 02/25/17 14:44 Dextrose (Dextrose 50%) STAT PRN IV Hypoglycemia 02/25/17 10:30 03/27/17 10:29 Enoxaparin Sodium (Lovenox) 40 mg DAILY SUBQ 02/25/17 11:00 03/27/17 10:59 Finasteride (Proscar) 5 mg DAILY ORAL 02/25/17 09:00 03/27/17 08:59 02/26/17 09:09 Furosemide (Lasix) 40 mg DAILY ORAL 02/25/17 11:00 03/27/17 10:59 Insulin Aspart (NovoLOG) BEFORE MEALS AND HS SUBQ 02/25/17 11:30 03/27/17 11:29 02/26/17 06:35 Multivitamins (Multivitamins) 1 tab DAILY ORAL 02/25/17 11:00 03/27/17 10:59 02/26/17 09:10 Pantoprazole (Protonix) 40 mg BIAC ORAL 02/25/17 06:30 03/27/17 06:29 02/26/17 06:36 Tolterodine Tartrate (Detrol) 2 mg BID ORAL 02/25/17 09:00 03/27/17 08:59 02/26/17 09:09 Height (Feet): 6 Height (Inches): 1.00 Weight (Pounds): 170 Objective exam stable JESSICA CABALLERO Feb 26, 2017 11:29
[2017-02-26 12:00] VITALS: BP 139/74
[2017-02-26] MEDS: cefTRIAXone 1 GM in NS 55 ML IVPB SCH (14:23)
[2017-02-26 16:09] VITALS: BP 110/73
--- NOTE | 2017-02-26 17:17 | History & Physical ---
History and Physical History & Physicial HP dictated # [id number] RUTHANN WASHINGTON Feb 26, 2017 17:17
[2017-02-26] MEDS ORDERED: Sterile Water Irrig 1000ml IRRIG ONE (17:34)
[2017-02-26] MEDS ORDERED: D5 1/2NS 1000ml IV ONE (17:34)
[2017-02-26] MEDS ORDERED: Tubing IV Secondary IV ONE (17:34)
--- NOTE | 2017-02-26 18:26 | General Progress Note ---
GuillermoDayanara N.P. 02/26/17 1826: Assessment/Plan Problem List: (1) UTI (urinary tract infection) Assessment & Plan: w/ chronic lakhani 2/2 urinary retention IV CTX f/u urine cx f/u blood cx. NGTD urology consult appreciated lakhani changed finasteride added ICD Codes: N39.0 - Urinary tract infection, site not specified SNOMED: 06580050 (2) Weakness Assessment & Plan: exacerbated in setting of infection check labs for further metabolic workup ICD Codes: R53.1 - Weakness SNOMED: 32261412 (3) wound Assessment & Plan: wound consult wound care per metal turner (4) Cirrhosis Assessment & Plan: chronic alcoholic cirrhosis continue lasix 40mg daily check ammonia ICD Codes: K74.60 - Unspecified cirrhosis of liver SNOMED: 99661334 Qualifiers: (5) Diabetes Assessment & Plan: continue SSi check A1c ICD Codes: E11.9 - Type 2 diabetes mellitus without complications SNOMED: 76824226 (6) Bilateral lower extremity edema Assessment & Plan: recent, OSH bilateral venous duplex negative for DVT continue lasix 40mg daily ICD Codes: R60.0 - Localized edema SNOMED: 458605455 (7) Status post fall Assessment & Plan: per my examination, patient does not show any signs of trauma and does not c/o pain. Will defer CT head and further xrays at this time ICD Codes: Z91.81 - History of falling SNOMED: 995042506 (8) Urinary retention Assessment & Plan: chronic lakhani urology consulted ICD Codes: R33.9 - Retention of urine, unspecified SNOMED: 762748746 (9) Pleural effusion Assessment & Plan: bilateral pleural effusion with right greater than left on CXR likely 2/2 CHF exacerbation vs. alcohol cirrhosis / ascites on chronic O2, saturating >92% on 3-4L O2 RI pulmonology consulted. thoracentesis to be performed obtain ECHO duonebs prn ICD Codes: J90 - Pleural effusion, not elsewhere classified SNOMED: 29611021 (10) acute on chronic chf exacerbation Assessment & Plan: continue diuresis with lasix cardiology consulted obtain ECHO BNP 7000s check serial trops and EKG (11) Hypokalemia Assessment & Plan: replete prn check bmp, mg nephrology consulted. ICD Codes: E87.6 - Hypokalemia SNOMED: 84666433 Status: stable Subjective Date patient seen: Feb 26, 2017 Time patient seen: 18:20 Allergies: Coded Allergies: PENICILLINS (Verified Allergy, Unknown, 02/24/17) Subjective - no acute o/n events - states doing better today. less SOB. denies cp, n/v, f/c, d/c - seen by pulmonology, recommending thoracentesis - ECHO report pending - seen by nephrology for low K - urine cx pending Objective Last 24 Hour Vital Signs Date Time Temp Pulse Resp B/P Pulse Ox O2 Delivery O2 Flow Rate FiO2 02/26/17 16:09 98.1 101 20 110/73 94 Nasal Cannula 3.0 02/26/17 12:00 98.0 90 18 139/74 97 Nasal Cannula 2.0 02/26/17 08:00 98.0 92 18 121/76 96 Nasal Cannula 2.0 02/26/17 04:00 96.6 95 18 125/73 91 Nasal Cannula 02/26/17 00:00 97.3 100 20 118/73 92 Nasal Cannula 3.0 02/25/17 20:12 Nasal Cannula 3.0 32 02/25/17 20:12 96 Nasal Cannula 3.0 32 02/25/17 20:00 96.6 104 20 117/75 92 Room Air Intake and Output 02/25/17 02/26/17 19:00 07:00 Intake Total 1550 ml Output Total 800 ml 400 ml Balance 750 ml -400 ml Intake Oral 1080 ml IV Total 470 ml Output Urine Total 800 ml 400 ml # Bowel Movements 1 Height (Feet): 6 Height (Inches): 1.00 Weight (Pounds): 170 General Appearance: alert, mild distress EENT: PERRL/EOMI, normal ENT inspection Neck: non-tender, normal alignment, supple Cardiovascular: normal peripheral pulses, normal rate, regular rhythm Respiratory/Chest: chest wall non-tender, lungs clear, normal breath sounds Abdomen: normal bowel sounds, non tender, distended Extremities: normal range of motion, non-tender Edema: mild edema Neurologic: 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 I agree with the above findings, impression, and plan. F/U Labs F/U cultures Discuss with nephrology -PT mobility F/U with Gi/nephrology Recommendations (Patient was seen earlier today. Signature timestamp does not reflect patient encounter time) Daniela Martinez MD Subjective Allergies: Coded Allergies: PENICILLINS (Verified Allergy, Unknown, 02/24/17) Dayanara Li N.P. Feb 26, 2017 18:26 DANIELA MARTINEZ Feb 27, 2017 08:21
[2017-02-26] MEDS: Spironolactone 25mg tab ORAL SCH (18:42)
[2017-02-26 21:00] VITALS: BP 130/81
[2017-02-26 21:29] LABS: ANION GAP 15 (5-15); CALCIUM 8.2 mg/dL (8.6-10.2); CARBON DIOXIDE 28 mEQ/L (20-30); CHLORIDE 97 mEQ/L (98-107); GLOMERULAR FILTRATION RATE > 60 mL/min (>60); HEMOLYSIS 17; POTASSIUM 3.5 mEQ/L (3.4-4.9); SODIUM 140 mEQ/L (135-145)
--- NOTE | 2017-02-26 21:59 | Consultation ---
History of Present Illness General Chief Complaint: General Complaint Reason for Consultation: dyspnea Present Illness HPI 66 year old male with end stage etoh liver disease, care home resident presented to ER with CC of increased weakness, dyspnea and increased abdominal girth. Allergies: Coded Allergies: PENICILLINS (Verified Allergy, Unknown, 02/24/17) Medication History Scheduled Amino Acids/Protein Hydrolys (Pro-Stat Liquid), 30 ML ORAL TWICE A DAY, ( Reported) Ascorbic Acid* (Vitamin C*), 500 MG ORAL DAILY, (Reported) Enoxaparin* (Lovenox*), 40 MG SUBQ DAILY, (Reported) Furosemide* (Lasix*), 40 MG ORAL DAILY, (Reported) Insulin Glargine (Lantus), 0 SUBQ BEDTIME, (Reported) Multivitamins* (Multivitamins*), 1 TAB ORAL DAILY, (Reported) Omeprazole (Omeprazole), 20 MG ORAL BID, (Reported) Ranitidine Hcl* (Zantac*), 150 MG ORAL DAILY, (Reported) Tamsulosin HCl (Flomax), 0.4 MG ORAL DAILY, (Reported) Scheduled PRN Hydrocodone Bit/Acetaminophen 10-325* ([place] 10-325*), 1 TAB ORAL Q4H PRN for For Pain, (Reported) Miscellaneous Medications Lactobacillus Rhamnosus Gg (Culturelle), 1 EACH PO, (Reported) Mag Hydrox/Al Hydrox/Simeth (Maalox Maximum Strength Susp), 30 ML PO, (Reported) Metformin HCl (Metformin HCl ER), 500 MG PO, (Reported) Tolterodine Tartrate (Tolterodine Tartrate ER), 4 MG PO, (Reported) Patient History Healthcare decision maker Resuscitation status Full Code Advanced Directive on File Yes Past Medical/Surgical History Past Medical/Surgical History: (1) Ascites (2) Cirrhosis (3) Diabetes Physical Exam General Appearance: cachetic Lines, tubes and drains: peripheral HEENT: normocephalic, atraumatic Neck: non-tender, normal alignment Respiratory/Chest: chest wall non-tender, lungs clear Cardiovascular/Chest: normal peripheral pulses Abdomen: normal bowel sounds, non tender Genitourinary/Rectal: normal genital exam, normal rectal exam Extremities: severe edema Skin Exam: normal pigmentation 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 II-XII grossly normal Last 24 Hour Vital Signs Date Time Temp Pulse Resp B/P Pulse Ox O2 Delivery O2 Flow Rate FiO2 02/26/17 21:00 97.3 103 21 130/81 92 Nasal Cannula 02/26/17 16:09 98.1 101 20 110/73 94 Nasal Cannula 3.0 02/26/17 12:00 98.0 90 18 139/74 97 Nasal Cannula 2.0 02/26/17 08:00 98.0 92 18 121/76 96 Nasal Cannula 2.0 02/26/17 04:00 96.6 95 18 125/73 91 Nasal Cannula 02/26/17 00:00 97.3 100 20 118/73 92 Nasal Cannula 3.0 Intake and Output 02/25/17 02/26/17 19:00 07:00 Intake Total 1550 ml Output Total 800 ml 400 ml Balance 750 ml -400 ml Intake Oral 1080 ml IV Total 470 ml Output Urine Total 800 ml 400 ml # Bowel Movements 1 Laboratory Tests Test 02/26/17 20:10 Sodium Level 140 mEQ/L (135-145) Potassium Level 3.5 mEQ/L (3.4-4.9) Chloride Level 97 mEQ/L (98-107) L Carbon Dioxide Level 28 mEQ/L (20-30) Anion Gap 15 (5-15) Blood Urea Nitrogen 21 mg/dL (7-23) Creatinine 1.0 mg/dL (0.7-1.2) Estimat Glomerular Filtration Rate > 60 mL/min (>60) Glucose Level 148 mg/dL (74-106) H Calcium Level 8.2 mg/dL (8.6-10.2) L Magnesium Level 1.8 mg/dL (1.7-2.5) Height (Feet): 6 Height (Inches): 1.00 Weight (Pounds): 170 Medications Current Medications Medications (Trade) Dose Ordered Sig/Chloe Route PRN Reason Start Time Stop Time Status Last Admin Dose Admin Acetaminophen/ Hydrocodone Bitart ([place] 10/325) 1 ea Q4H PRN ORAL For Pain 02/25/17 00:00 03/04/17 00:00 Al Hydroxide/Mg Hydroxide (Mylanta II) 30 ml Q6H PRN ORAL dyspepsia 02/25/17 00:30 03/27/17 00:29 Ascorbic Acid 500 mg 500 mg DAILY ORAL 02/25/17 11:00 03/27/17 10:59 02/26/17 09:09 Ceftriaxone Sodium/Sodium Chloride (Rocephin/Sodium Chloride) 55 ml @ 110 mls/hr Q24H IVPB 02/25/17 14:00 03/04/17 13:59 02/26/17 14:23 Dextrose (Dextrose 50%) STAT PRN IV Hypoglycemia 02/25/17 10:30 03/27/17 10:29 Enoxaparin Sodium (Lovenox) 40 mg DAILY SUBQ 02/25/17 11:00 03/27/17 10:59 Finasteride (Proscar) 5 mg DAILY ORAL 02/25/17 09:00 03/27/17 08:59 02/26/17 09:09 Furosemide (Lasix) 40 mg DAILY ORAL 02/25/17 11:00 03/27/17 10:59 Insulin Aspart (NovoLOG) BEFORE MEALS AND HS SUBQ 02/25/17 11:30 03/27/17 11:29 02/26/17 21:54 Multivitamins (Multivitamins) 1 tab DAILY ORAL 02/25/17 11:00 03/27/17 10:59 02/26/17 09:10 Pantoprazole (Protonix) 40 mg BIAC ORAL 02/25/17 06:30 03/27/17 06:29 02/26/17 17:13 Potassium Chloride (K-Dur) 40 meq ONCE ONCE ORAL 02/26/17 22:00 02/26/17 22:01 02/26/17 21:53 Potassium Chloride (K-Dur) 40 meq ONCE ONCE ORAL 02/27/17 02:00 02/27/17 02:01 Spironolactone (Aldactone) 25 mg DAILY ORAL 02/26/17 18:00 03/28/17 17:59 02/26/17 18:42 Tolterodine Tartrate (Detrol) 2 mg BID ORAL 02/25/17 09:00 03/27/17 08:59 02/26/17 18:42 Assessment/Plan Problem List: (1) Pleural effusion ICD Codes: J90 - Pleural effusion, not elsewhere classified SNOMED: 03102784 (2) acute on chronic chf exacerbation (3) Ascites ICD Codes: R18.8 - Other ascites SNOMED: 037339757 (4) Hypokalemia ICD Codes: E87.6 - Hypokalemia SNOMED: 36329202 (5) Urinary retention ICD Codes: R33.9 - Retention of urine, unspecified SNOMED: 891313517 (6) Bilateral lower extremity edema ICD Codes: R60.0 - Localized edema SNOMED: 333735302 Assessment/Plan paracentesis diuretics opitmize cardiac meds don't think pt need thoracentesis dvt prophylaxis CAIN ALAS Feb 26, 2017 21:59
--- NOTE | 2017-02-26 22:16 | Consultation ---
DATE OF CONSULTATION: 02/26/2017 NEPHROLOGY CONSULTATION CONSULTING PHYSICIAN: Bladimir Arthur M.D. REFERRING PHYSICIAN: Dayana Loaiza M.D. REASON FOR CONSULTATION: Hypokalemia. HISTORY OF PRESENT ILLNESS: This is a 66-year-old male with history of alcoholic liver cirrhosis, who was admitted for generalized weakness, change in mental status post fall. The patient is somewhat a poor historian. He thinks that he lives at home by himself. Based on history and physical patient came from residential. I was asked to see him because of his hypokalemia due to potassium of 2.8. The patient says that he has not had any alcohol for a few years now. PAST MEDICAL HISTORY: Includes also history of BPH. He has diabetes with a history of an indwelling Womack catheter. MEDICATIONS: Reviewed in the EMR. ALLERGIES: Penicillin. SOCIAL HISTORY: Previous history of alcohol abuse. The patient lives in a fpc facility. REVIEW OF SYSTEMS: Noncontributory. PHYSICAL EXAMINATION: GENERAL: The patient is a 66-year-old male, in no acute distress. VITAL SIGNS: Blood pressure 110/73, pulse 101, temperature 98.1, and respiratory rate 20. HEENT: [place] conjunctivae. Anicteric sclerae. NECK: Supple. LUNGS: Clear to auscultation. HEART: S1 and S2 without murmurs or rubs. ABDOMEN: Soft and nontender. EXTREMITIES: Bilateral pedal edema. LABORATORY FINDINGS: Chemistry panel shows a serum sodium of 143, potassium 2.8, chloride 96, CO2 13, BUN 23, and creatinine 1.1. Blood sugar is 120. Calcium 8.3. CBC shows a WBC of 6.8, hematocrit 33.6, hemoglobin 10.6, and platelets 91,000. UA shows 2+ protein, 15 to 20 RBCs, too numerous to count WBCs per high-power field. ASSESSMENT: This is a 66-year-old male with history of alcoholic liver cirrhosis, who was admitted with weakness. He has significant hypokalemia. He is on loop diuretics which is one reason. He may have also poor p.o. intake contributing to that as well as hypomagnesemia. PLAN: 1. I ordered 40 mEq KCl p.o. x3 to be given today. 2. Magnesium level will be checked with BMP tomorrow. 3. The patient would benefit from potassium sparing diuretic Aldactone, which I will prescribe. 4. I will follow those results and make further recommendations. Thank you very much, Dr. Loaiza, for this consultation. Bladimir Arthur M.D. DR: NEYMAR JOB#: [id number] CC: NEELAM
[2017-02-26] MEDS ORDERED: KCl 10% 40mEq/30ml liquid ORAL ONE (22:30)
[2017-02-27] VITALS: BP 109/75
[2017-02-27] MEDS ORDERED: KCl 10% 40mEq/30ml liquid ORAL ONE (02:00)
[2017-02-27 04:00] VITALS: BP 121/75
[2017-02-27] MEDS: NovoLOG Insulin Flexpen SUBQ SCH ×4 (06:01→21:00)
[2017-02-27 07:43] LABS: INR 1.4 (0.9-1.1); PROTHROMBIN TIME 14.6 SEC (9.30-11.50)
[2017-02-27 07:47] LABS: ALANINE AMINOTRANSFERASE 22 U/L (3-41); ALBUMIN/GLOBULIN RATIO 0.4 (1.0-2.7); ANION GAP 12 (5-15); ASPARTATE AMINO TRANSFERASE 29 U/L (5-40); CALCIUM 8.4 mg/dL (8.6-10.2); CARBON DIOXIDE 31 mEQ/L (20-30); CHLORIDE 99 mEQ/L (98-107); CREATININE 0.9 mg/dL (0.7-1.2); GLOMERULAR FILTRATION RATE > 60 mL/min (>60); HEMOLYSIS 4; PHOSPHORUS 2.4 mg/dL (2.5-4.8); POTASSIUM 4.2 mEQ/L (3.4-4.9); SODIUM 142 mEQ/L (135-145); TOTAL PROTEIN 7.2 g/dL (6.6-8.7)
[2017-02-27 07:56] LABS: BASOPHILS % (AUTO) 1.3 % (0.0-2.0); EOSINOPHILS % (AUTO) 1.4 % (0.0-3.0); LYMPHOCYTES % (AUTO) 15.6 % (20.0-45.0); MEAN CORPUSCULAR HEMOGLOBIN 24.5 PG (27.0-31.0); MEAN CORPUSCULAR HGB CONC 30.3 G/DL (32.0-36.0); MEAN CORPUSCULAR VOLUME 81 FL (80-99); MEAN PLATELET VOLUME 11.5 FL (6.5-10.1); MONOCYTES % (AUTO) 10.4 % (1.0-10.0); NEUTROPHILS % (AUTO) 71.3 % (45.0-75.0); PLATELET COUNT 108 K/UL (150-450); RED BLOOD COUNT 4.86 M/UL (4.70-6.10); RED CELL DISTRIBUTION WIDTH 25.4 % (11.6-14.8); WHITE BLOOD COUNT 5.6 K/UL (4.8-10.8)
[2017-02-27 08:13] LABS: BILIRUBIN,DIRECT 1.8 mg/dL (0.1-0.3)
[2017-02-27 08:15] VITALS: BP 123/68
[2017-02-27] MEDS: Enoxaparin 40mg Inj SUBQ SCH (09:00)
[2017-02-27] MEDS: Ascorbic Acid 500mg tab ORAL SCH (09:59)
[2017-02-27] MEDS: Furosemide 40mg tab ORAL SCH (10:00)
[2017-02-27] MEDS: Spironolactone 25mg tab ORAL SCH (10:00)
[2017-02-27] MEDS: Tolterodine 2mg tab ORAL SCH ×2 (10:01→18:26)
[2017-02-27 11:45] VITALS: BP 117/71
--- NOTE | 2017-02-27 13:27 | Urology Progress Note ---
Assessment/Plan Assessment/Plan 1. Urinary retention with chronic Lakhani. 2. Benign prostatic hypertrophy history. 3. Probable neurogenic bladder. 4. Pyuria and probable colonization versus urinary tract infection. 5. Hematuria. 6. Proteinuria. 7. Phimosis. 8. Inguinal hernia. keep lakhani indwelling, last exchanged 02/25 abx as ordered f/u on blood cx cysto later Subjective Allergies: Coded Allergies: PENICILLINS (Verified Allergy, Unknown, 02/24/17) Subjective all noted Objective Last 24 Hour Vital Signs Date Time Temp Pulse Resp B/P Pulse Ox O2 Delivery O2 Flow Rate FiO2 02/27/17 11:45 98.2 102 23 117/71 95 Nasal Cannula 2.0 02/27/17 08:15 97.6 98 22 123/68 95 Nasal Cannula 2.0 02/27/17 04:00 97.8 97 20 121/75 92 Nasal Cannula 02/27/17 00:00 97.3 101 19 109/75 92 Nasal Cannula 02/26/17 21:00 97.3 103 21 130/81 92 Nasal Cannula 02/26/17 19:25 95 Nasal Cannula 3.0 32 02/26/17 19:25 Nasal Cannula 3.0 32 02/26/17 16:09 98.1 101 20 110/73 94 Nasal Cannula 3.0 Intake and Output 02/26/17 02/27/17 19:00 07:00 Intake Total 635 ml Output Total 750 ml 450 ml Balance -115 ml -450 ml Intake Oral 580 ml IV Total 55 ml Output Urine Total 750 ml 450 ml Microbiology Date/Time Source Procedure Growth Status 02/24/17 23:05 Blood Blood Culture - Preliminary NO GROWTH AFTER 48 HOURS Resulted 02/24/17 15:10 Nasal Nares MRSA Culture - Final NO METHICILLIN RESISTANT STAPH AUREUS... Complete 02/24/17 13:40 Urine,Clean Catch Urine Culture - Final Pseudomonas Aeruginosa Complete 02/24/17 15:10 Rectum VRE Culture - Final Enterococcus Faecalis - Vre Complete Current Medications Medications (Trade) Dose Ordered Sig/Chloe Route PRN Reason Start Time Stop Time Status Last Admin Dose Admin Acetaminophen/ Hydrocodone Bitart ([place] 10/325) 1 ea Q4H PRN ORAL For Pain 02/25/17 00:00 03/04/17 00:00 Al Hydroxide/Mg Hydroxide (Mylanta II) 30 ml Q6H PRN ORAL dyspepsia 02/25/17 00:30 03/27/17 00:29 Ascorbic Acid 500 mg 500 mg DAILY ORAL 02/25/17 11:00 03/27/17 10:59 02/27/17 09:59 Ceftriaxone Sodium/Sodium Chloride (Rocephin/Sodium Chloride) 55 ml @ 110 mls/hr Q24H IVPB 02/25/17 14:00 03/04/17 13:59 02/26/17 14:23 Dextrose (Dextrose 50%) STAT PRN IV Hypoglycemia 02/25/17 10:30 03/27/17 10:29 Enoxaparin Sodium (Lovenox) 40 mg DAILY SUBQ 02/25/17 11:00 03/27/17 10:59 Finasteride (Proscar) 5 mg DAILY ORAL 02/25/17 09:00 03/27/17 08:59 02/27/17 10:00 Furosemide (Lasix) 40 mg DAILY ORAL 02/25/17 11:00 03/27/17 10:59 02/27/17 10:00 Insulin Aspart (NovoLOG) BEFORE MEALS AND HS SUBQ 02/25/17 11:30 03/27/17 11:29 02/27/17 12:08 Multivitamins (Multivitamins) 1 tab DAILY ORAL 02/25/17 11:00 03/27/17 10:59 02/27/17 10:01 Pantoprazole (Protonix) 40 mg BIAC ORAL 02/25/17 06:30 03/27/17 06:29 02/27/17 05:55 Spironolactone (Aldactone) 25 mg DAILY ORAL 02/26/17 18:00 03/28/17 17:59 02/27/17 10:00 Tolterodine Tartrate (Detrol) 2 mg BID ORAL 02/25/17 09:00 03/27/17 08:59 02/27/17 10:01 Laboratory Tests 02/26/17 20:10: Sodium Level 140, Potassium Level 3.5, Chloride Level 97L, Carbon Dioxide Level 28, Anion Gap 15, Blood Urea Nitrogen 21, Creatinine 1.0, Estimat Glomerular Filtration Rate > 60, Glucose Level 148H, Calcium Level 8.2L, Magnesium Level 1.8 02/27/17 06:30: Sodium Level 142, Potassium Level 4.2, Chloride Level 99, Carbon Dioxide Level 31H, Anion Gap 12, Blood Urea Nitrogen 19, Creatinine 0.9, Estimat Glomerular Filtration Rate > 60, Glucose Level 139H, Calcium Level 8.4L, Magnesium Level 1.8, White Blood Count 5.6, Red Blood Count 4.86, Hemoglobin 11.9L, Hematocrit 39.2L, Mean Corpuscular Volume 81, Mean Corpuscular Hemoglobin 24.5L, Mean Corpuscular Hemoglobin Concent 30.3L, Red Cell Distribution Width 25.4H, Platelet Count 108L, Mean Platelet Volume 11.5H, Neutrophils (%) (Auto) 71.3, Lymphocytes (%) (Auto) 15.6L, Monocytes (%) (Auto) 10.4H, Eosinophils (%) (Auto ) 1.4, Basophils (%) (Auto) 1.3, Prothrombin Time 14.6H, Prothromb Time International Ratio 1.4H, Activated Partial Thromboplast Time 32, Phosphorus Level 2.4L, Total Bilirubin 3.4H, Direct Bilirubin 1.8H, Aspartate Amino Transf (AST/SGOT) 29, Alanine Aminotransferase (ALT/SGPT) 22, Alkaline Phosphatase 174H , Total Protein 7.2, Albumin 2.2L, Globulin 5.0, Albumin/Globulin Ratio 0.4L Height (Feet): 6 Height (Inches): 1.00 Weight (Pounds): 170 Objective exam stable JESSICA CABALLERO Feb 27, 2017 13:27
--- NOTE | 2017-02-27 14:51 | Nephrology Progress Note ---
Assessment/Plan Problem List: (1) Cirrhosis (2) UTI (urinary tract infection) (3) Bilateral lower extremity edema (4) Hypokalemia Assessment: ok (5) Diabetes Plan cont with lasix follow BMP and mag Abxs Discussed with RN Subjective Subjective Pt is getting thoracentesis Objective Objective Last 24 Hour Vital Signs Date Time Temp Pulse Resp B/P Pulse Ox O2 Delivery O2 Flow Rate FiO2 02/27/17 11:45 98.2 102 23 117/71 95 Nasal Cannula 2.0 02/27/17 08:15 97.6 98 22 123/68 95 Nasal Cannula 2.0 02/27/17 04:00 97.8 97 20 121/75 92 Nasal Cannula 02/27/17 00:00 97.3 101 19 109/75 92 Nasal Cannula 02/26/17 21:00 97.3 103 21 130/81 92 Nasal Cannula 02/26/17 19:25 95 Nasal Cannula 3.0 32 02/26/17 19:25 Nasal Cannula 3.0 32 02/26/17 16:09 98.1 101 20 110/73 94 Nasal Cannula 3.0 Intake and Output 02/26/17 02/27/17 19:00 07:00 Intake Total 635 ml Output Total 750 ml 450 ml Balance -115 ml -450 ml Intake Oral 580 ml IV Total 55 ml Output Urine Total 750 ml 450 ml Laboratory Tests 02/26/17 20:10: Sodium Level 140, Potassium Level 3.5, Chloride Level 97L, Carbon Dioxide Level 28, Anion Gap 15, Blood Urea Nitrogen 21, Creatinine 1.0, Estimat Glomerular Filtration Rate > 60, Glucose Level 148H, Calcium Level 8.2L, Magnesium Level 1.8 02/27/17 06:30: Sodium Level 142, Potassium Level 4.2, Chloride Level 99, Carbon Dioxide Level 31H, Anion Gap 12, Blood Urea Nitrogen 19, Creatinine 0.9, Estimat Glomerular Filtration Rate > 60, Glucose Level 139H, Calcium Level 8.4L, Magnesium Level 1.8, White Blood Count 5.6, Red Blood Count 4.86, Hemoglobin 11.9L, Hematocrit 39.2L, Mean Corpuscular Volume 81, Mean Corpuscular Hemoglobin 24.5L, Mean Corpuscular Hemoglobin Concent 30.3L, Red Cell Distribution Width 25.4H, Platelet Count 108L, Mean Platelet Volume 11.5H, Neutrophils (%) (Auto) 71.3, Lymphocytes (%) (Auto) 15.6L, Monocytes (%) (Auto) 10.4H, Eosinophils (%) (Auto ) 1.4, Basophils (%) (Auto) 1.3, Prothrombin Time 14.6H, Prothromb Time International Ratio 1.4H, Activated Partial Thromboplast Time 32, Phosphorus Level 2.4L, Total Bilirubin 3.4H, Direct Bilirubin 1.8H, Aspartate Amino Transf (AST/SGOT) 29, Alanine Aminotransferase (ALT/SGPT) 22, Alkaline Phosphatase 174H , Total Protein 7.2, Albumin 2.2L, Globulin 5.0, Albumin/Globulin Ratio 0.4L Height (Feet): 6 Height (Inches): 1.00 Weight (Pounds): 170 RUTHANN WASHINGTON Feb 27, 2017 14:51
[2017-02-27 15:43] VITALS: BP 109/71
[2017-02-27] MEDS: cefTRIAXone 1 GM in NS 55 ML IVPB SCH (16:00)
[2017-02-27] MEDS ORDERED: FINASTERIDE5 MG ORAL (16:40)
[2017-02-27] MEDS ORDERED: CIPROFLOXA500 MG/5 M PO (16:40)
[2017-02-27] MEDS ORDERED: ALDACTONE25 MG ORAL (16:40)
--- NOTE | 2017-02-27 17:09 | Discharge Summary ---
Discharge Summary Hospital Course Date of Admission Feb 24, 2017 at 15:02 Date of Discharge 02/27/17 Admitting Diagnosis UTI, Cirrohis, need urology eval, AMS HPI Gustavo Agudelo is a 66 year old male who was admitted on Feb 24, 2017 at 15: 02 for Urinary Tract Infection,Cirrhosis,Need Urology Consultations Nephrology Pulmonology Urology Hospital Course 66 y/o male who presented with AMS and generalized weakness was diagnosed with UTI. Given patient had a difficult previous lakhani insertion due to inguinal hernia and BPH, urology was consulted to exchange lakhani. Lakhani was successfully changed and patient was treated with IV CTX for UTI. Bilateral pleural effusion was also seen on CXR and pulmonology was consulted. Given patient's chronic ascites, the fluid was likely due to the cirrhosis and paracentesis was done with 2.5 L out. Patient was also noted to have hypokalemia. Nephrology was consulted and patient was started on spirinolactone and electrollytes were repleted. Patient was further stable prior to discharge with no chest pain, increased SOB, f/c, n/v. Patient was discharged with abx for UTI. Discharge Medications New Medications: PENDING: Ciprofloxacin (Ciprofloxacin) 500 Mg/5 Ml Toña.mc.rec 500 MG PO BID for 7 Days, #14 CAP PENDING: Finasteride (Finasteride) 5 Mg Tablet 5 MG ORAL DAILY for 30 Days, #30 TAB PENDING: Spironolactone (Aldactone) 25 Mg Tablet 25 MG ORAL DAILY for 30 Days, #30 TAB Continued Medications: Amino Acids/Protein Hydrolys (Pro-Stat Liquid) 30 Ml Liquid.pkt 30 ML ORAL TWICE A DAY, ML Ascorbic Acid* (Vitamin C*) 500 Mg Tablet 500 MG ORAL DAILY, #30 TAB 0 Refills Enoxaparin* (Lovenox*) 40 Mg/0.4 Ml Inj 40 MG SUBQ DAILY Furosemide* (Lasix*) 40 Mg Tablet 40 MG ORAL DAILY, TAB Hydrocodone Bit/Acetaminophen 10-325* ([place] 10-325*) 1 Each Tablet 1 TAB ORAL Q4H PRN for For Pain, TAB 0 Refills PRN PAIN Insulin Glargine (Lantus) 100 Unit/1 Ml Insuln.pen 0 SUBQ BEDTIME, #1 EA 0 Refills Lactobacillus Rhamnosus Gg (Culturelle) 1 Each Cap.sprink 1 EACH PO, CAP Mag Hydrox/Al Hydrox/Simeth (Maalox Maximum Strength Susp) 355 Ml Oral.susp 30 ML PO, ML Metformin HCl (Metformin HCl ER) 500 Mg [id number] 500 MG PO, TAB Multivitamins* (Multivitamins*) 1 Each Tablet 1 TAB ORAL DAILY, TAB 0 Refills Omeprazole (Omeprazole) 20 Mg Tablet.dr 20 MG ORAL BID, TAB Ranitidine Hcl* (Zantac*) 150 Mg Tablet 150 MG ORAL DAILY, #30 TAB 0 Refills Tamsulosin HCl (Flomax) 0.4 Mg Cap.er.24h 0.4 MG ORAL DAILY, CAP Tolterodine Tartrate (Tolterodine Tartrate ER) 4 Mg Cap.er.24h 4 MG PO, CAP Discharge Condition Upon Discharge: stable Discharge Disposition Patient was discharged to SNF Discharge Diagnoses: (1) Ascites (2) Cirrhosis (3) Diabetes (4) Weakness (5) UTI (urinary tract infection) (6) SOB (shortness of breath) (7) Urinary retention (8) Pleural effusion (9) acute on chronic chf exacerbation (10) Hypokalemia (11) Bilateral lower extremity edema Dayanara Li N.P. Feb 27, 2017 17:09
[2017-02-27 18:11] LABS: APPEARANCE, BODY FLUID HAZY; BD FL VOLUME 24 mL
[2017-02-27 18:12] LABS: BD FL SOURCE PARACENTESIS
[2017-02-27 18:56] LABS: BODY FLUID NUCLEATED CELLS 23 /CUMM; BODY FLUID RBC 95 /CUMM
[2017-02-27 18:57] LABS: MONONUCLEAR WBC 97 %; POLYMORPHONUCLEAR WBC 0 %
--- NOTE | 2017-02-27 19:49 | Pulmonology Progress Note ---
Assessment/Plan Problems: (1) acute on chronic chf exacerbation (2) Ascites (3) Hypokalemia (4) Bilateral lower extremity edema (5) Weakness (6) Cirrhosis Assessment/Plan s/p paracentesis diuretics check electrolytes f/u labs symptomatic treatment pt will benefit from comfort care. Subjective ROS Limited/Unobtainable: No Interval Events: tolerated paracentesis very well Allergies: Coded Allergies: PENICILLINS (Verified Allergy, Unknown, 02/24/17) Objective Last 24 Hour Vital Signs Date Time Temp Pulse Resp B/P Pulse Ox O2 Delivery O2 Flow Rate FiO2 02/27/17 15:43 97.6 99 20 109/71 95 Nasal Cannula 2.0 02/27/17 11:45 98.2 102 23 117/71 95 Nasal Cannula 2.0 02/27/17 08:15 97.6 98 22 123/68 95 Nasal Cannula 2.0 02/27/17 04:00 97.8 97 20 121/75 92 Nasal Cannula 02/27/17 00:00 97.3 101 19 109/75 92 Nasal Cannula 02/26/17 21:00 97.3 103 21 130/81 92 Nasal Cannula Intake and Output 02/26/17 02/27/17 19:00 07:00 Intake Total 635 ml Output Total 750 ml 450 ml Balance -115 ml -450 ml Intake Oral 580 ml IV Total 55 ml Output Urine Total 750 ml 450 ml Objective General Appearance: WD/WN HEENT: normocephalic Respiratory/Chest: chest wall non-tender, lungs clear Breasts: no masses Cardiovascular: normal peripheral pulses Abdomen: normal bowel sounds, soft, non tender, slightly distended Genitourinary: normal external genitalia Skin: no rash Microbiology Date/Time Source Procedure Growth Status 02/24/17 23:05 Blood Blood Culture - Preliminary NO GROWTH AFTER 48 HOURS Resulted 02/24/17 23:00 Blood Blood Culture - Preliminary NO GROWTH AFTER 48 HOURS Resulted Laboratory Tests 02/26/17 20:10: Sodium Level 140, Potassium Level 3.5, Chloride Level 97L, Carbon Dioxide Level 28, Anion Gap 15, Blood Urea Nitrogen 21, Creatinine 1.0, Estimat Glomerular Filtration Rate > 60, Glucose Level 148H, Calcium Level 8.2L, Magnesium Level 1.8 02/27/17 06:30: Sodium Level 142, Potassium Level 4.2, Chloride Level 99, Carbon Dioxide Level 31H, Anion Gap 12, Blood Urea Nitrogen 19, Creatinine 0.9, Estimat Glomerular Filtration Rate > 60, Glucose Level 139H, Calcium Level 8.4L, Magnesium Level 1.8, White Blood Count 5.6, Red Blood Count 4.86, Hemoglobin 11.9L, Hematocrit 39.2L, Mean Corpuscular Volume 81, Mean Corpuscular Hemoglobin 24.5L, Mean Corpuscular Hemoglobin Concent 30.3L, Red Cell Distribution Width 25.4H, Platelet Count 108L, Mean Platelet Volume 11.5H, Neutrophils (%) (Auto) 71.3, Lymphocytes (%) (Auto) 15.6L, Monocytes (%) (Auto) 10.4H, Eosinophils (%) (Auto ) 1.4, Basophils (%) (Auto) 1.3, Prothrombin Time 14.6H, Prothromb Time International Ratio 1.4H, Activated Partial Thromboplast Time 32, Phosphorus Level 2.4L, Total Bilirubin 3.4H, Direct Bilirubin 1.8H, Aspartate Amino Transf (AST/SGOT) 29, Alanine Aminotransferase (ALT/SGPT) 22, Alkaline Phosphatase 174H , Total Protein 7.2, Albumin 2.2L, Globulin 5.0, Albumin/Globulin Ratio 0.4L 02/27/17 14:15: Body Fluid Source Paracentesis, Body Fluid Volume 24, Body Fluid Appearance Hazy , Body Fluid RBC 95, Body Fluid Total Nucleated Cells 23, Body Fluid Polynuclear WBCs (%) 0, Body Fluid Mononuclear WBCs (%) 97, Body Fluid Mesothelial Cells (%) 3, Body Fluid Glucose [Pending], Body Fluid Total Protein [Pending], Body Fluid Albumin [Pending] Current Medications Medications (Trade) Dose Ordered Sig/Chole Route PRN Reason Start Time Stop Time Status Last Admin Dose Admin Acetaminophen/ Hydrocodone Bitart ([place] 10/325) 1 ea Q4H PRN ORAL For Pain 02/25/17 00:00 03/04/17 00:00 Al Hydroxide/Mg Hydroxide (Mylanta II) 30 ml Q6H PRN ORAL dyspepsia 02/25/17 00:30 03/27/17 00:29 Ascorbic Acid 500 mg 500 mg DAILY ORAL 02/25/17 11:00 03/27/17 10:59 02/27/17 09:59 Ceftriaxone Sodium/Sodium Chloride (Rocephin/Sodium Chloride) 55 ml @ 110 mls/hr Q24H IVPB 02/25/17 14:00 03/04/17 13:59 02/27/17 16:00 Dextrose (Dextrose 50%) STAT PRN IV Hypoglycemia 02/25/17 10:30 03/27/17 10:29 Enoxaparin Sodium (Lovenox) 40 mg DAILY SUBQ 02/25/17 11:00 03/27/17 10:59 Finasteride (Proscar) 5 mg DAILY ORAL 02/25/17 09:00 03/27/17 08:59 02/27/17 10:00 Furosemide (Lasix) 40 mg DAILY ORAL 02/25/17 11:00 03/27/17 10:59 02/27/17 10:00 Insulin Aspart (NovoLOG) BEFORE MEALS AND HS SUBQ 02/25/17 11:30 03/27/17 11:29 02/27/17 16:38 Multivitamins (Multivitamins) 1 tab DAILY ORAL 02/25/17 11:00 03/27/17 10:59 02/27/17 10:01 Pantoprazole (Protonix) 40 mg BIAC ORAL 02/25/17 06:30 03/27/17 06:29 02/27/17 16:00 Spironolactone (Aldactone) 25 mg DAILY ORAL 02/26/17 18:00 03/28/17 17:59 02/27/17 10:00 Tolterodine Tartrate (Detrol) 2 mg BID ORAL 02/25/17 09:00 03/27/17 08:59 02/27/17 18:26 CAIN ALAS Feb 27, 2017 19:49
[2017-02-27 20:00] VITALS: BP 113/74
[2017-02-27] MEDS ORDERED: CIPRO500 MG/51 PO (20:29)
[2017-02-27] MEDS ORDERED: SPIRONOLACTONE25 MG ORAL (20:30)
[2017-02-27] MEDS ORDERED: PROSCAR5 MG ORAL (20:30)
[2017-02-27] MEDS ORDERED: Tubing IV Secondary IV ONE (21:49)
[2017-02-28 22:08] LABS: PROTEIN, BODY FLUID 0.5 g/dL (.)
--- NOTE | 2017-03-02 08:04 | Diagnostic Imaging Report ---
Indications: Ascites Technique: Ultrasound used to localize optimal puncture site. Sterile prepping and draping right lower quadrant. Local anesthesia with 1% lidocaine. Under real-time ultrasound guidance, puncture peritoneal space using paracentesis needle. Stylet removed. Catheter placed to vacuum bottle suction. Total 7.6 liters of fluid aspirated. Patient tolerated procedure well, without immediate complication. Findings: Followup sonography demonstrates complete resolution of peritoneal fluid. Impression: Successful ultrasound-guided paracentesis, yielding 7.6 liters of fluid
--- NOTE | 2017-03-02 17:23 | Cardiology Report ---
APPROVED REPORT EXAM: Two-dimensional and M-mode echocardiogram with Doppler and color Doppler. INDICATION Left ventricular function M-Mode DIMENSIONS IVSd0.9 (0.7-1.1cm)Left Atrium (MM)4.3 (1.6-4.0cm) LVDd4.5 (3.5-5.6cm)Aortic Root3.0 (2.0-3.7cm) PWd0.9 (0.7-1.1cm)Aortic Cusp Exc.1.5 (1.5-2.0cm) LVDs2.8 (2.5-4.0cm) PWs1.1 cm Normal left ventricular chamber size, systolic function and wall motion. Left ventricular ejection fraction estimated to be 60-65%. No evidence of left ventricular hypertrophy. No evidence of pericardial fat or effusion. Mild left atrial enlargement by 2D. Severe right atrial and right ventricular enlargement with severely reduced right ventricular systolic function. In short axis, D shaped LV configuration is suggestive of right ventricular volume and pressure overload. Focal aortic valve sclerosis with adequate cusp excursion Thickened mitral valve leaflets with normal excursion. Mitral annulus and aortic root calcification. Pulmonic valve not well visualized. Normal tricuspid valve structure. IVC is normal in size with minimal physiological collapse. A color flow and spectral Doppler study was performed and revealed: Trace aortic regurgitation. Moderate mitral regurgitation. Left ventricular diastolic dysfunction grade 1. Severe tricuspid regurgitation. Tricuspid systolic velocities suggests peak right ventricular systolic pressure of 65 mmHg Consistent with severe pulmonary hypertension.
[2017-03-04 12:46] LABS: COMMENT,BODY FLUID PATHOLOGIST COMMENT
== END 2017-02-27 21:50 | DRG 433 ==
LOC: EDBD 13:05 → EMR 13:28 → 4E 15:02 → EDBEDREQ 16:09
PROC: 0W9G3ZZ Drainage of Peritoneal Cavity, Percutaneous Approach (ICD-10-PCS; principal; 2017-02-26)
DX: K70.31 Alcoholic cirrhosis of liver with ascites (principal); N39.0 Urinary tract infection, site not specified; J90 Pleural effusion, not elsewhere classified; I50.9 Heart failure, unspecified; E11.9 Type 2 diabetes mellitus without complications; R33.9 Retention of urine, unspecified; E87.6 Hypokalemia; Z88.0 Allergy status to penicillin; Z79.4 Long term (current) use of insulin; Z91.81 History of falling; K40.90 Unilateral inguinal hernia, without obstruction or gangrene, not specified as recurrent; N47.1 Phimosis; N40.1 Benign prostatic hyperplasia with lower urinary tract symptoms; R33.8 Other retention of urine
CPT/HCPCS: 36415; 71010; 76942; 80048; 80053; 81003; 82140; 82248; 82962; 83036; 83690; 83735; 83880; 84100; 84484; 85007; 85025; 85610; 85730; 87040; 87070; 87081; 87086; 87181; 87205; 88104; 89051; 93005; 93306; 94760; J1815; J8499